=== PATIENT | female | born 1995 | race Caucasian/White ===

== ENCOUNTER 2022-04-25 12:49 | Outpatient (CLI) | payer BC, SELFPAY ==
--- NOTE | 2022-04-25 13:00 | US_ITS ---
Patient: EULOGIO LUCIA Facility:?[facility] Patient ID:?[id number] Site Patient ID:?[id number]. Site :?[id number] Study:?US-OB Pelvis -04/25/2022 1:36:30 PM Ordering Physician:?UNKNOWN UNKNOWN Final Report: INDICATION: 27 year-old female. First trimester scan, establish dates. COMPARISON: None. TECHNIQUE: Real-time shrestha-scale imaging of the pelvis was performed. FINDINGS: Sonographic imaging demonstrates a single living intrauterine gestation. The embryo demonstrates a regular cardiac rate measuring 176 beats per minute. The embryo`s crown-rump length measurement of 1.7 cm corresponds to a gestational age of 8 weeks 0 days with a sonographic due date of December 05, 2022. There is a normal-appearing yolk sac measuring up to 2.3 mm. There are no gross abnormalities noted within the embryo at this early state of development. The placenta has not yet developed. The gestational sac has a normal appearance and there is no evidence of a perigestational hemorrhage. The amount of fluid within the sac appears appropriate for gestational age. The cervix is closed. The myometrium appears normal. The ovaries are of normal size. The right ovary measures 3.6 x 2.8 x 2.1 cm and contains a small corpus luteum cyst of . The left ovary measures 2.4 x 1.4 x 2.8 cm. There are no suspicious fluid collections noted in the cul-de-sac. IMPRESSION: Normal first trimester OB ultrasound exam. Gestational age calculated at 8 weeks 0 days with a sonographic due date of December 05, 2022. Dictated by Rangel Guerra MD @ 04/25/2022 4:53:49 PM Signed by:?Rangel Guerra MD @04/25/2022 4:53:49 PM (Electronic Signature)
== END 2022-04-25 12:50 | disposition home or self-care (01) ==
PROVIDERS: PCP Physician Assistant Medical; Visit Provider Physician Assistant
DX: Z34.91 Encounter for supervision of normal pregnancy, unspecified, first trimester (principal); Z3A.08 8 weeks gestation of pregnancy
CPT/HCPCS: 76817; 86592; 86703; 86762; 86787; 86803; 86850; 86900; 86901; 87086; 87340; 87491; 87591

== ENCOUNTER 2022-07-18 13:48 | Outpatient (CLI) | payer BC, SELFPAY ==
--- NOTE | 2022-07-18 14:00 | CRLHL7_ITS ---
For Patients: As a result of the Century Cures Act, medical imaging exams and procedure reports are released immediately into your electronic medical record. You may view this report before your referring provider. If you have questions, please contact your health care provider. INDICATION: Evaluate anatomy. COMPARISON: 04/25/2022 TECHNIQUE: Real time shrestha scale imaging of the fetus was performed as well as color Doppler analysis of the umbilical vessels. FINDINGS: Sonographic imaging demonstrates a single living intrauterine gestation. Fetus demonstrates a regular cardiac rate of 152 beats per minute. Fetus has a vertex position. The placenta lies anteriorly without evidence of placenta previa. The edge of the placenta is located 5.2 cm from the internal cervical os. Amniotic fluid volume appears normal. Single deepest vertical pocket: 4.5 cm. The cervix is closed and measures 3.5 cm in length. The composite ultrasound gestational age is calculated at 20 weeks 5 days with an estimated sonographic due date of 11/30/2022. The estimated weight is 376 grams which lies at the 86th %. The following biometric measurements were obtained: Biparietal diameter: 4.8 cm/20 weeks 4 days 73rd% Head circumference: 18.2 cm/20 weeks 4 days 68th% Abdominal circumference: 15.9 cm/21 weeks 0 days 76th% Femur length: 3.4 cm/20 weeks 4 days 63rd% The HC/AC ratio measures: 1.14 range (1.06-1.25) On anatomic survey, there is a normal appearance of the cavum septum pellucidum is not well visualized. Prominence of 1 of the lateral ventricles is present measuring up to 1 cm. Posterior fossa is probably normal. The nose, lips, and facial profile appear normal. The cervical, thoracic and lumbar spine are well visualized and appear normal. There is a normal four-chamber heart view and the left and right ventricular outflow tracts appear normal. The diaphragm and stomach appear normal. The kidneys and bladder also appear normal. There is a normal three-vessel cord and cord insertion site. The four extremities appear normal. IMPRESSION: Nonvisualization of the cavum septum pellucidum and prominence of 1 of the cerebral lateral ventricles. Maternal medicine level 2 ultrasound recommended. Sonographic gestational age 20 weeks 5 days and sonographic due date 11/30/2022. Sonographic age 5 days ahead of the clinical age. Estimated weight 86th percentile. Abdominal circumference 76th percentile. Dictated by Elvin Lainez MD @ 07/19/2022 11:01:25 AM (Electronically Signed)
== END 2022-07-18 13:49 | disposition home or self-care (01) ==
LOC: US 13:49
PROVIDERS: PCP Physician Assistant Medical; Visit Provider Obstetrics & Gynecology
DX: Z34.92 Encounter for supervision of normal pregnancy, unspecified, second trimester (principal); Z3A.20 20 weeks gestation of pregnancy
CPT/HCPCS: 76805

== ENCOUNTER 2022-09-10 14:32 | Outpatient (CLI) | payer BC, SELFPAY | END 2022-09-10 14:33 | disposition home or self-care (01) | LOC: NFLDREF 09-14 06:03 | PROVIDERS: PCP Physician Assistant Medical; Referring Provider Physician Assistant Medical; Visit Provider Obstetrics & Gynecology | DX: Z34.93 Encounter for supervision of normal pregnancy, unspecified, third trimester (principal); Z3A.28 28 weeks gestation of pregnancy | CPT/HCPCS: 86592 ==

== ENCOUNTER 2022-10-21 11:00 | Outpatient (CLI) | payer BC, SELFPAY ==
--- NOTE | 2022-10-21 11:00 | CRLHL7_ITS ---
For Patients: As a result of the Century Cures Act, medical imaging exams and procedure reports are released immediately into your electronic medical record. You may view this report before your referring provider. If you have questions, please contact your health care provider. INDICATION: Third trimester scan, evaluate growth. COMPARISON: 07/18/2022 TECHNIQUE: Real time shrestha scale imaging of the fetus was performed. FINDINGS: Sonographic imaging demonstrates a single living intrauterine gestation. Fetus demonstrates a regular cardiac rate of 128 beats per minute. Fetus has a vertex position. Placenta is anterior. Known succenturiate lobe not visualized. Amniotic fluid volume appears normal and there is a single deepest vertical pocket: 6.3 cm. The estimated weight is 3177gm which lies at the greater than 97th %. On the prior OB ultrasound exam dated 07/18/2022 the estimated weight was at the 86th%. BPD, HC, AC greater than 97th percentile. The HC/AC ratio measures 0.99 range (0.91-1.05). IMPRESSION: Sonographic gestational age 37 weeks 2 days and sonographic due date 11/09/2022. Sonographic age 26 days ahead of the clinical age. Estimated weight greater than 97th percentile. BPD, HC, AC greater than 97th percentile. Known succenturiate placenta lobe not visualized on today`s examination due to position. Dictated by Elvin Lainez MD @ 10/21/2022 12:30:04 PM (Electronically Signed)
== END 2022-10-21 11:01 | disposition home or self-care (01) ==
PROVIDERS: PCP Physician Assistant Medical; Visit Provider Obstetrics & Gynecology
DX: O36.63X0 Maternal care for excessive fetal growth, third trimester, not applicable or unspecified (principal); Z3A.37 37 weeks gestation of pregnancy
CPT/HCPCS: 76816; 82728

== ENCOUNTER 2022-11-04 13:00 | Outpatient (RCR) | payer BC, SELFPAY ==
--- NOTE | 2022-10-25 11:06 | URNOTE ---
Injectafer ([id number]) has been approved 750mg x 2 doses -01/23/2023. Auth #[id number]
[2022-10-28] MEDS: FERRIC CARBOXYMALTOSE 750 MG in 0.9 % SODIUM CHLORIDE 250 ml 250 ML 540 MG IVPB (13:59)
[2022-10-28 14:10] VITALS: BP 97/57; PULSE 106; RESP 18; TEMP 36.5; O2SAT 96
[2022-10-28 14:32] VITALS: BP 107/63; PULSE 101; RESP 16; TEMP 36.5; O2SAT 96
[2022-11-04 13:04] VITALS: BP 97/60; PULSE 110; RESP 16; TEMP 36.9; O2SAT 96
[2022-11-04] MEDS: FERRIC CARBOXYMALTOSE 750 MG in 0.9 % SODIUM CHLORIDE 250 ml 250 ML 1060 MG IVPB (13:17)
== END 2023-04-26 23:59 | disposition home or self-care (01) ==
LOC: CCIC 13:00
PROVIDERS: PCP Physician Assistant Medical; Referring Provider Physician Assistant Medical; Visit Provider Obstetrics & Gynecology
DX: D50.9 Iron deficiency anemia, unspecified (principal)
CPT/HCPCS: 96365; 96374; J1439; J7050

== ENCOUNTER 2022-11-05 13:15 | Outpatient (CLI) | payer BC, SELFPAY | END 2022-11-05 13:16 | disposition home or self-care (01) | LOC: NFLDREF 11-06 17:02 | PROVIDERS: PCP Physician Assistant Medical; Referring Provider Physician Assistant Medical; Visit Provider Obstetrics & Gynecology | DX: Z34.93 Encounter for supervision of normal pregnancy, unspecified, third trimester (principal); O99.013 Anemia complicating pregnancy, third trimester; Z3A.35 35 weeks gestation of pregnancy | CPT/HCPCS: 87081; 87653 ==

== ENCOUNTER 2022-11-28 05:16 | Inpatient (IN) | payer BC, SELFPAY ==
[2022-11-28] VITALS (33 sets, daily range): BP systolic 88–120; BP diastolic 44–65; PULSE 52–96; RESP 14–16; TEMP 35.4–37.2; O2SAT 95–100; BMI 30.2
[2022-11-28] MEDS: LACTATED RINGERS 1000 ML 1,000 ML 500 ML IV (06:03)
[2022-11-28 06:24] LABS: Basophils Absolute Auto 0.02 K/uL (0.00-0.30); Basophils Percent Auto 0.2 % (0.0-3.0); Hematocrit 32.8 % (33.0-51.0); Hemoglobin* 10.8 gm/dL (12.0-16.0); Immature Granulocytes Abs Auto 0.24 K/uL (0.00-0.30); Immature Granulocytes Pct Auto 2.4 %; Lymphocytes Absolute Auto 2.16 K/uL (0.90-2.90); Mean Corpuscular HGB Conc 33 gm/dL (32-36); Mean Corpuscular Hemoglobin 32 pg (26-34); Mean Corpuscular Volume 96 fL (80-100); Monocytes Percent Auto 9.7 % (0.0-11.0); Neutrophils Absolute Auto 6.45 K/uL (1.7-7.0); Neutrophils Percent Auto 65.7 % (42.0-72.0); Platelet Count* 172 K/uL (140-440); RDW Coefficient of Variation % 16.9 % (11.5-15.5); Red Blood Count 3.43 m/uL (4.00-5.20); White Blood Count* 9.82 K/uL (4.50-11.00)
[2022-11-28 06:26] LABS: Slide Review Reflex No
--- NOTE | 2022-11-28 07:35 | W.ANESCHARGE ---
Anesthesia Charges Start Date/Time Anesthesia Start Date: 11/28/22 Anesthesia Start Time: 07:23 Stop Date/Time Anesthesia Stop Date: 11/28/22 Anesthesia Stop Time: 08:49
[2022-11-28] MEDS: LACTATED RINGERS 1000 ML 1,000 ML 125 ML IV (08:23)
[2022-11-28] MEDS: KETOROLAC 30 MG/ML inj IVP ×4 (08:26→21:11)
--- NOTE | 2022-11-28 08:45 | W.PM.NB ---
Nerve Block Nerve Block Time Seen by Provider: 08:40 Date Seen: 11/28/22 Type of block requested by surgeon for post-operative analgesia: TAP Side: bilateral Time out performed: Yes Verification of patient name: Yes Verification of date of : Yes Site marking: site marked Name of person performing procedure: LeDu Assistants, if any: Seng Continuous monitoring Was continuous monitoring of O2 sat, B/P, director of cardiac rehabilitation, recorded every 15 minutes?: Yes Procedure Checklist: sterile prep, needles and gloves Ultrasound guided. Images saved: Yes Medications given in 5ml increments after negative aspiration: Marcaine %: 0.25 mL: 30 Needle gauge: 20 and Exparel mL: 10 Patient tolerated procedure well: Yes Additional comments: Needle noted adjacent to nerve Block Charges Block Charge (with Pro Fee): TAP Bilateral Use of Ultrasound Machine for Block: Yes- US Guidance/pain block
--- NOTE | 2022-11-28 08:46 | W.ANESCHARGE ---
Anesthesia Charges Start Date/Time Anesthesia Start Date: 11/28/22 Anesthesia Start Time: 07:23 Stop Date/Time Anesthesia Stop Date: 11/28/22 Anesthesia Stop Time: 08:49
--- NOTE | 2022-11-28 12:10 | PM.OBPRCCS ---
Procedure Date of procedure: 11/28/22 Pre-op diagnosis: 39 weeks' gestation; history of shoulder dystocia; macrosomia Post-op diagnosis: same Procedure Done: Global (Primary low transverse ) Will [facility] bill your pro fee for this procedure?: Yes Blood Loss Measurement Type: QBL (5328) Bakri Used: No IV fluids (mL): 1,200 Surgeon: Penny Friedman MD Marine Mammal Trainer: OLIVER Cates Anesthesia type: Spinal Findings: 1. Male , cephalic OA presentation, Apgars 8 & 9, weight 10 lbs 2 oz 2. Markedly dilated vasculature along serosal surface of left lateral uterus. Otherwise, normal appearance of uterus, tubes and ovaries. Procedure Description: PREOPERATIVE DIAGNOSIS: [] PROCEDURE IN DETAIL: Patient was taken to the operating room with IV running. She received cefazolin in preoperative prophylaxis. Spinal anesthesia had previously been administered. Cooper catheter was inserted. She was prepped and draped in the usual sterile fashion. Anesthesia was tested and found to be adequate. A low-transverse skin incision was made with a scalpel and carried through to the underlying layer of fascia with the scalpel. The subcutaneous fat was dissected off the underlying fascia bluntly. The fascia was nicked in the midline with a scalpel, and this incision was extended laterally with scissors. The rectus muscles were in the midline. Peritoneum was identified and entered bluntly. Bovie was used to widen this opening laterally. Bird O retractor was inserted and tightened down, providing excellent visualization of the lower uterine segment. The bladder reflection was found to be well below the planned site for hysterotomy. Low-transverse uterine incision was made with a scalpel. Incision was widened bluntly. The infant's head was grasped through the hysterotomy and delivered with the help of fundal pressure. The remainder of the body delivered without incident. Cord was clamped and cut after 30 seconds. was handed off to attending nurses. The placenta was delivered with gentle traction on the cord. Briskly bleeding vessels along the left angle of the hysterotomy were initially grasped with ring forceps. The uterus was cleaned of all clots and debris with the dry lap pad. The hysterotomy was reapproximated with 0 Vicryl in a running, locked fashion. Second layer of the same suture was used along the left aspect of the incision to gain hemostasis. Several additional [id number] sutures and electrocautery were ultimately required in this area to obtain excellent hemostasis. The uterus was exteriorized during the latter part of the repair. The adnexa were examined and noted to be normal in appearance. The cul-de-sac and gutters were cleansed with dampened laparotomy sponge, removing any further clots and debris. The uterus was returned to the abdomen. The Bird O retractor was removed. The hysterotomy was reexamined and electrocautery used along the left aspect of the incision for oozing along the serosa. The peritoneum was reapproximated with 2 0 Vicryl in a running fashion. The rectus muscles were examined and found to be hemostatic. The fascia was reapproximated with 0 Vicryl in a running fashion. Subcutaneous fat was irrigated and Bovie used on oozing vessels. The subcutaneous fat was reapproximated with 2 0 plain gut suture in an interrupted fashion. The skin was closed with a subcuticular stitch of 4-0 Monocryl. Surgical glue was applied above this. Patient tolerated procedure well was taken to recovery area in stable condition. Complications: Intraoperative hemorrhage, partially attributable to hemorrhage of large vessel that hysterotomy, and partially attributable to uterine atony. Managed with IV Pitocin and Methergine. Condition: stable Disposition: floor
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
[2022-11-28] MEDS: ACETAMINOPHEN 500 MG TABLET 1000 MG PO ×2 (16:32→22:43)
[2022-11-28] MEDS: OXYCODONE 5 MG TABLET PO (19:46)
[2022-11-29 00:13] VITALS: BP 94/51; PULSE 66; RESP 16; TEMP 36.4; O2SAT 96
[2022-11-29] MEDS: OXYCODONE 5 MG TABLET PO ×4 (00:20→19:06)
[2022-11-29 03:37] VITALS: BP 90/53; PULSE 74; RESP 16; TEMP 36.9; O2SAT 96
[2022-11-29] MEDS: KETOROLAC 30 MG/ML inj IVP ×3 (03:40→15:59)
[2022-11-29 06:59] LABS: Hemoglobin* 9.6 gm/dL (12.0-16.0)
--- NOTE | 2022-11-29 07:15 | P.OBPN_ITS ---
OB - PN:Subj Subjective Time Seen by Provider: 07:15 Date Seen: 11/29/22 Interval history: Roya is a 27 y.o. who was admitted to L & D for elective r/t hx of shoulder dystocia and macrosomic .? She had an uncomplicated primary c- section.? ? ? Narrative: The patient feels well.? The pain is well controlled with current medications.? She has no new complaints.? She is breast feeding and reports things are going well.? the patient has done well.? Vitals have been stable.? She has remained afebrile.? Has a good appetite, is tolerating a general diet.? She is voiding without difficulty.? She is passing gas and has not had a bowel movement.? She is ambulating and denies any dizziness.? Has Small amount of rubra lochia.? OB - PN: Obj Exam Physical Exam: Vital signs: Temp Pulse Resp BP Pulse Ox O2 Del Method 98.5 F 74 16 90/53 L 96 Room Air 11/29/22 03:37 11/29/22 03:37 11/29/22 03:37 11/29/22 03:37 11/29/22 03:37 11/29/22 03:37 Narrative: VSS.? Afebrile? GENERAL APPEARANCE:? normal affect, alert, no distress? MOOD:? appropriate? HEENT: normocephalic, neck supple, full ROM? CHEST:? Symmetrical chest wall movement.? Normal respiratory effort.? Clear to auscultation? HEART:? regular rate and rhythm? ABDOMEN:? soft, non-tender. Uterine fundus is firm, at Umbilicus, Midline and is appropriate for the stage of recovery.? Bowel sounds present.? EXTREMITIES:? normal and no edema? SKIN: warm, dry.? Dressing on, clean/dry/intact.? No signs of infection noted.? OB - PN: Obj Data Labs Labs: Laboratory Results - last 24 hr 11/28/22 11/29/22 05:58 06:45 Hgb 9.6 L Blood Type A Positive Antibody Screen NEGATIVE OB - PN: A/P Delivery Assessment and Plan (1) Status post primary low transverse section: Status: Acute (2) Lactating mother: Status: Acute (3) History of shoulder dystocia in prior : Status: Acute (4) Anemia complicating : Status: Acute (5) macrosomia during : Status: Acute Plan day: 1 Comments: Assessment/Plan? G 3 P 2 status post uncomplicated primary .? ?? 1.? Continue route PP cares? 2.? .? May see if desired? 3.? Anticipate discharge home tomorrow or the following day per pt preference? 4.? Acute anemia.? Iron supplement ordered ?
[2022-11-29 08:00] VITALS: RESP 16; O2SAT 97
[2022-11-29 08:15] VITALS: BP 90/51; PULSE 70; RESP 16; TEMP 36.6; O2SAT 97
[2022-11-29] MEDS: DOCUSATE SODIUM 100 MG CAPSULE PO (08:26)
[2022-11-29] MEDS: ACETAMINOPHEN 500 MG TABLET 1000 MG PO ×3 (08:26→20:15)
[2022-11-29 15:44] VITALS: BP 96/61; PULSE 77; RESP 16; TEMP 36.8; O2SAT 97
[2022-11-29 23:47] VITALS: BP 100/64; PULSE 77; RESP 16; TEMP 36.9; O2SAT 97
[2022-11-29] MEDS: IBUPROFEN 600 MG TABLET PO (23:51)
[2022-11-30] MEDS: OXYCODONE 5 MG TABLET PO ×2 (02:20→08:36)
[2022-11-30] MEDS: ACETAMINOPHEN 500 MG TABLET 1000 MG PO ×2 (02:20→08:36)
[2022-11-30] MEDS: IBUPROFEN 600 MG TABLET PO ×2 (05:16→12:39)
[2022-11-30 08:30] VITALS: BP 126/58; PULSE 78; RESP 16; TEMP 36.7; O2SAT 98
[2022-11-30] MEDS: DOCUSATE SODIUM 100 MG CAPSULE PO (08:37)
--- NOTE | 2022-11-30 11:21 | P.DS_ITS ---
DS: Providers Provider Time Seen by Provider: 09:00 Date Seen: 11/30/22 Date of admission: 11/28/22 05:16 Primary care physician: Salma Beck PA-C Admitting Clinician: Penny Friedman MD Attending Physician on discharge: Penny Friedman MD Date of Discharge: 11/30/22 DS: Diagnosis Discharge Diagnosis (1) Status post primary low transverse section: Status: Acute (2) Scoliosis: Status: Acute (3) History of shoulder dystocia in prior : Status: Acute (4) Anemia complicating : Status: Acute (5) macrosomia during : Status: Acute (6) Environmental allergies: Status: Acute (7) Lactating mother: Status: Acute Exam Narrative: Exam Narrative: Physical exam: General: No acute distress Psych: Alert and oriented x3, full affect HEENT: Normocephalic, atraumatic Neck: No cervical adenopathy, no thyromegaly Heart: Regular rate and rhythm, no murmur rub or gallop Lungs: Clear to auscultation bilaterally Abdomen: Normoactive bowel sounds, soft, appropriately tenderness at incision site. No rebound, or guarding, no masses Incision: Clear, dry, intact without erythema, induration, or discharge. Skin: No lesions or rashes Breasts: no nodules or masses, no nipple discharge, no axillary adenopathy Lower extremities: No edema or erythema Pelvic exam: Scant bleeding on pad. Const: Vital Signs, click to edit/add: Vital Signs - 24 hr 11/29/22 15:44 11/29/22 23:47 11/30/22 08:30 Temperature 98.2 F 98.4 F 98.0 F Pulse Rate [Pulse Oximeter] 77 77 78 Respiratory Rate 16 16 16 Blood Pressure [Ri ght Arm] 96/61 100/64 126/58 L Pulse Oximetry 97 97 98 Oxygen Delivery Me thod Room Air Room Air Room Air OB - DS: Summary Hospital Course Hospital Course: The patient is a 27 year old at 39 weeks gestation that was admitted to the Center on 11/28/22 for scheduled primary low transverse section due to history of shoulder dystocia. She had an delivery complicated by intraoperative hemorrhage, partially contributed to hemorrhage of large vessels at hysterotomy, and partially attributed to uterine atony. She delivered a viable male . She is . the patient has done well. She does have acute blood loss anemia managed by PO iron. VSS. Overnight patient had no complaints. Her pain is well controlled on oral pain medications. She is tolerating a regular diet. She had passed flatus. She is ambulating without difficulty. Lochia is scant. She is urinating without potter. Patient denies chest pain, SOB, n/v, headache, RUQ pain, vision changes, dizziness. Time spent discussing smoking cessation with patient: 3 to 10 minutes Peripartum Data Procedures: Procedures Operation Date: 11/28/22 07:15 Actual Procedure Side Surgeon p Primary Section Penny Friedman MD [place] Infant Gender: Male Time Spent with Patient Time attestation: Total time spent providing and/or coordinating discharge services: Discharge Plan Discharge Disposition: Home, Self-Care Date of Admission: 11/28/22 05:16 Primary Care Provider: Salma Beck Condition: Stable Anticipated Discharge Date/Time: 11/30/22 11:22 Discharge Medications: New acetaminophen 500 mg Tablet 1,000 mg PO Q6H PRN (Reason: Pain) 30 Days Qty: 60 0RF ferrous sulfate 325 mg (65 mg iron) Tablet 325 mg PO Q48H 30 Days Qty: 15 0RF docusate sodium 100 mg Capsule 100 mg PO DAILY 30 Days Qty: 30 0RF ibuprofen 600 mg Tablet 600 mg PO Q6H PRN (Reason: Pain) 30 Days Qty: 60 0RF Lanolin (HPA) 100 % Cream 1 applic topical Q1H PRNQty: 21 0RF simethicone 80 mg Tablet,Chewable 80 - 160 mg PO Q4H PRN (Reason: Gas) 30 Days Qty: 60 0RF oxycodone 5 mg Tablet 5 mg PO Q6H PRN (Reason: Pain) 14 Days Qty: 20 0RF Continued All Day Allergy (cetirizine) 10 mg capsule 10 mg PO QDAY PRN (Reason: allergy symptoms) Qty: 30 6RF prenat.vits,benoit,krk-qcia-lsthw Tablet 1 tab PO QDAY Discharge Orders: Discharge Order (Routine); Ordered 11/30/22 Ordered By: Vanesa Resendiz Patient Education: (DC) Additional Instructions: Discharge instructions were reviewed with the patient including signs and symptoms of infection and home going medications. Lifting Restrictions: 15 pounds for [address] taking narcotic pain medication. 1-2 weeks No high impact or core exercises for 6 weeks. Nothing vaginally for 6 weeks: No tampons or intercourse. Off Work or School for 8 weeks. Symptoms to report to doctor: -Bleeding that saturates more than one pad per hour ?-Passing clots larger than the size of a golf ball ?-Pain not relieved by prescribed medication ?-Fever above 100.4 degrees Fahrenheit ?-A foul vaginal odor ?-Difficulty in emotions, mood and functions ?-Thoughts of hurting yourself and/or ?-Painful, reddened area in your breast ?-Any drainage, redness or tenderness in your IV/epidural site ?-Severe headache that doesn't improve after taking medications ?-Changes in vision, including temporary loss of vision, blurred vision, and/or light sensitivity ?-Upper abdominal pain (usually under ribs on the right side) ?-Decrease in urination or painful, frequent urinating ?-Chest pain ?-Shortness of breath ?-Tenderness or pain with redness and/swelling in the calf(s) of your leg Follow Up with a [facility] provider: 2 week : discuss feeding, control options and screen for anxiety/depression. 6 week visit for physical exam consultation services are available to all mothers and babies for the first year after delivery.? To make an appointment, please call [phone]. Follow Up Appointments: Salma Beck PA-C [Primary Care Provider] - Forms: [employer] Info Instructions
== END 2022-11-30 13:55 | disposition home or self-care (01) | DRG 540 ==
PROVIDERS: Obstetrics & Gynecology; Admitting Provider Obstetrics & Gynecology; PCP Physician Assistant Medical; Visit Provider Obstetrics & Gynecology
PROC: 10D00Z1 Extraction of Products of Conception, Low, Open Approach (ICD-10-PCS; CPT 59514; principal; 2022-11-28 07:15)
DX: O36.63X0 Maternal care for excessive fetal growth, third trimester, not applicable or unspecified (principal); O9A.32 Physical abuse complicating childbirth; Y07.010 Husband, current, perpetrator of maltreatment and neglect; O72.1 Other immediate postpartum hemorrhage; O99.02 Anemia complicating childbirth; D62 Acute posthemorrhagic anemia; Z3A.39 39 weeks gestation of pregnancy; Z37.0 Single live birth; G89.18 Other acute postprocedural pain
CPT/HCPCS: 01961; 36415; 76942; 85018; 85025; 86850; 86900; 86901; A9270; C9290; J0665; J1100; J1885; J2274; J2371; J2405; J2590; J7120

== ENCOUNTER 2022-12-12 16:00 | Inpatient (IN) | payer BC, SELFPAY ==
[2022-12-12] VITALS (22 sets, daily range): BP systolic 111–168; BP diastolic 72–108; PULSE 57–90; RESP 16; TEMP 36.6; O2SAT 95–97; BMI 27.4
[2022-12-12 15:37] LABS: Hematocrit 34.3 % (33.0-51.0); Hemoglobin* 11.4 gm/dL (12.0-16.0); Mean Corpuscular HGB Conc 33 gm/dL (32-36); Mean Corpuscular Hemoglobin 31 pg (26-34); Mean Corpuscular Volume 93 fL (80-100); Platelet Count* 307 K/uL (140-440); Red Blood Count 3.69 m/uL (4.00-5.20); White Blood Count* 7.96 K/uL (4.50-11.00)
[2022-12-12 15:41] LABS: Slide Review Reflex No
[2022-12-12 15:57] LABS: Alanine Aminotransferase* 22 U/L (4-35); Aspartate Amino Transferase* 30 U/L (12-35); Blood Urea Nitrogen* 17 mg/dL (5-24); Creatinine* 0.6 mg/dL (0.5-1.5); Est. Creatinine Clearance* 129.51; Estimated Glomerular Filt Rate 125 ml/min
[2022-12-12 15:57] LABS: Total Protein Urine 22 mg/dL
[2022-12-12] MEDS: LABETALOL HCL 5 MG/ML inj IVP ×2 (16:03→16:18)
[2022-12-12] MEDS: MAGNESIUM IV 4 GM/100 ML PIGGYBACK IVPB (16:20)
[2022-12-12] MEDS: LACTATED RINGERS 1000 ML 1,000 ML 75 ML IV (16:20)
[2022-12-12 16:25] LABS: Creatinine Urine 91.2 mg/dL
[2022-12-12] MEDS: IBUPROFEN 600 MG TABLET PO (17:20)
[2022-12-12] MEDS: CYCLOBENZAPRINE HCL 10 MG TABLET 5 MG PO (17:30)
[2022-12-13] VITALS (7 sets, daily range): BP systolic 121–140; BP diastolic 77–92; PULSE 71–74; RESP 16–18; TEMP 36.4–36.9; O2SAT 96
[2022-12-13] MEDS: IBUPROFEN 600 MG TABLET PO ×4 (03:47→22:13)
[2022-12-13] MEDS: ACETAMINOPHEN 500 MG TABLET 1000 MG PO ×3 (03:48→16:05)
[2022-12-13] MEDS: LACTATED RINGERS 1000 ML 1,000 ML 75 ML IV (05:52)
[2022-12-13 06:47] LABS: Hematocrit 37.5 % (33.0-51.0); Hemoglobin* 12.4 gm/dL (12.0-16.0); Mean Corpuscular HGB Conc 33 gm/dL (32-36); Mean Corpuscular Hemoglobin 31 pg (26-34); Mean Corpuscular Volume 93 fL (80-100); Platelet Count* 334 K/uL (140-440); Red Blood Count 4.02 m/uL (4.00-5.20)
[2022-12-13 06:53] LABS: Slide Review Reflex No
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
[2022-12-13 07:01] LABS: Creatinine* 0.5 mg/dL (0.5-1.5); Est. Creatinine Clearance* 155.42; Estimated Glomerular Filt Rate 130 ml/min
[2022-12-13 07:02] LABS: Alanine Aminotransferase* 21 U/L (4-35); Aspartate Amino Transferase* 24 U/L (12-35); Blood Urea Nitrogen* 13 mg/dL (5-24)
--- NOTE | 2022-12-13 09:32 | PM.OBPNVD1 ---
OB - PN:Subj Subjective Date Seen: 12/13/22 Patient comments OB post-: no complaints [place] status: Narrative: Roya is a 27 y.o. who was re-admitted to [facility] for magnesium infusion after recent diagnosis of preeclampsia with severe features. The patient feels regular, she feels a bit dizzy. In general, denies headache, visual changes or pain in her upper abdomen. ?She is breast feeding and pumping, baby is with dad but planning on coming in later today. She has had elevated blood pressures, not on severity range recently. She has remained afebrile.? Has a good appetite, is tolerating a general diet. ?She is voiding without difficulty. Has Small amount of rubra lochia. ? OB - PN: Obj Exam Physical Exam: Vital signs: Temp Pulse Resp BP Pulse Ox O2 Del Method 98.5 F 74 16 130/84 96 Room Air 12/13/22 08:09 12/13/22 08:09 12/13/22 08:09 12/13/22 08:09 12/13/22 08:09 12/13/22 08:09 Narrative: VITAL SIGNS: As noted above. GENERAL APPEARANCE: Alert, cooperative female in no acute distress. MOOD & AFFECT: Normal. HEART: Regular rate and rhythm without murmurs. LUNGS: Lungs are clear to auscultation bilaterally. No crackles, wheezes, or rhonchi. ABDOMEN: Soft, non-distended and nontender. : Normal lochia. EXTREMITIES: Bilateral trace edema up to ankles. Well perfused. Nontender. NEURO: Intact. OB - PN: Obj Data Labs Labs: Laboratory Results - last 24 hr 12/12/22 12/12/22 12/13/22 15:27 15:29 06:05 WBC 7.96 9.70 RBC 3.69 L 4.02 Hgb 11.4 L 12.4 Hct 34.3 37.5 MCV 93 93 MCH 31 31 MCHC 33 33 Plt Count 307 334 BUN 17 13 Creatinine 0.6 0.5 Estimated Creat Clear 129.51 155.42 Estimated GFR 125 130 AST 30 24 ALT 22 21 Urine Creatinine 91.2 Protein/Creatinin Ratio 0.20 H Urine Total Protein 22 OB - PN: A/P Delivery Assessment and Plan (1) Pre-eclampsia, severe, delivered: Status: Acute Plan 1. Continue magnesium sulfate infusion to complete 24 hours, continue with HELLP labs every 6 hours, collect a magnesium level with her next set of labs. 2. Continue close monitoring of vitals signs and I/O. Will start Procardia 30mg ER daily. 3. Patient understands recommendation to continue close inpatient observation for at least 12-24 hours after magnesium sulfate infusion is discontinued.
[2022-12-13 10:02] LABS: Magnesium* 6.3 mg/dL (1.5-2.6)
[2022-12-13] MEDS: NIFEdipine 30 MG TAB.ER.24 PO (10:05)
[2022-12-13 12:00] LABS: Hematocrit 38.4 % (33.0-51.0); Hemoglobin* 12.7 gm/dL (12.0-16.0); Mean Corpuscular HGB Conc 33 gm/dL (32-36); Mean Corpuscular Hemoglobin 31 pg (26-34); Mean Corpuscular Volume 93 fL (80-100); Platelet Count* 333 K/uL (140-440); Red Blood Count 4.11 m/uL (4.00-5.20); White Blood Count* 8.06 K/uL (4.50-11.00)
[2022-12-13 12:01] LABS: Slide Review Reflex No
[2022-12-13 12:14] LABS: Creatinine* 0.5 mg/dL (0.5-1.5); Est. Creatinine Clearance* 155.42; Estimated Glomerular Filt Rate 130 ml/min
[2022-12-13 12:15] LABS: Alanine Aminotransferase* 22 U/L (4-35); Aspartate Amino Transferase* 25 U/L (12-35); Blood Urea Nitrogen* 10 mg/dL (5-24)
[2022-12-14 00:40] VITALS: BP 128/83; PULSE 86; RESP 18; TEMP 37
[2022-12-14 04:15] VITALS: BP 131/80; PULSE 66; RESP 16; TEMP 36.9
[2022-12-14] MEDS: ACETAMINOPHEN 500 MG TABLET 1000 MG PO (06:54)
--- NOTE | 2022-12-14 07:46 | P.DS_ITS ---
DS: Providers Provider Date Seen: 12/14/22 Date of admission: 12/12/22 16:00 Primary care physician: Salma Beck PA-C Admitting Clinician: Vanesa Resendiz MD Attending Physician on discharge: Penny Friedman MD Date of Discharge: 12/14/22 DS: Diagnosis Discharge Diagnosis (1) Pre-eclampsia, severe, delivered: Status: Acute Problem details: Status post 24 hours of magnesium sulfate for seizure prophylaxis, ending 12/13/2022. Maintained on nifedipine ER 30 mg daily. (2) Status post primary low transverse section: Status: Acute (3) Lactating mother: Status: Acute Discharge Plan Discharge Disposition: Home, Self-Care Date of Admission: 12/12/22 16:00 Attending Provider on Discharge: Penny Friedman Primary Care Provider: Salma Beck Condition: Improved Anticipated Discharge Date/Time: 12/14/22 10:58 Discharge Medications: New nifedipine 30 mg Tablet Extended Release 24hr 30 mg PO DAILY Qty: 30 0RF Continued All Day Allergy (cetirizine) 10 mg capsule 10 mg PO QDAY PRN (Reason: allergy symptoms) Qty: 30 6RF prenat.vits,benoit,eyr-fmhz-corxu Tablet 1 tab PO QDAY acetaminophen 500 mg Tablet 1,000 mg PO Q6H PRN (Reason: Pain) 30 Days Qty: 60 0RF ferrous sulfate 325 mg (65 mg iron) Tablet 325 mg PO Q48H 30 Days Qty: 15 0RF ibuprofen 600 mg Tablet 600 mg PO Q6H PRN (Reason: Pain) 30 Days Qty: 60 0RF Lanolin (HPA) 100 % Cream 1 applic topical Q1H PRNQty: 21 0RF oxycodone 5 mg Tablet 5 mg PO Q6H PRN (Reason: Pain) 14 Days Qty: 20 0RF Discharge Orders: Discharge Order (Routine); Ordered 12/14/22 Ordered By: Penny Friedman Patient Education: OB High Blood Pressure DC Additional Instructions: Discharge instructions were reviewed with the patient including signs and symptoms of infection and home going medications Lifting Restrictions: 20 pounds for 6 weeks Nothing vaginally for 6 weeks: no tampons or intercourse Do not drive while taking narcotic pain medication(s) Off Work or School for 8 weeks Symptoms to report to doctor: * Bleeding that saturates more than one pad per hour * Passing clots larger than the size of a golf ball * Pain not relieved by prescribed medication * Fever above 100.4 degrees Fahrenheit * A foul vaginal odor * Difficulty in emotions, mood, and functions * Thoughts of hurting yourself and/or * Painful, reddened area in your breast * Any drainage, redness, or tenderness in your IV/epidural site * Severe headache that doesn't improve after taking medications * Changes in vision, including temporary loss of vision, blurred vision, and/or light sensitivity * Upper abdominal pain (usually under ribs on the right side) * Decrease in urination or painful, frequent urinating * Chest pain * Shortness of breath * Tenderness or pain with redness and/swelling in the calf(s) of your leg [facility] for a BP check?12/16 or 12/17 Call with BP greater than or equal to 150/100 6-week visit for an annual exam. consultation services are available to all mothers and babies for the first year after delivery.? To make an appointment, please call [phone]. Discharge Diet: Regular Follow Up Appointments: Salma Beck PA-C [Primary Care Provider] - Forms: [employer] Info Instructions Hospital Course Course Hospital Course: Roya is a 27-year-old G3 now P3 woman who for is scented for 2 week visit and was found to have severe preeclampsia by blood pressure criteria. she is status post primary low-transverse section for suspected macrosomia with a history of shoulder dystocia in prior . She was also experiencing headache At time of admission. She was sent to Center, where she received IV antihypertensives, followed by IV magnesium sulfate infusion for seizure prophylaxis. She was started on Procardia 30 mg daily for management of elevated blood pressures. Today, on hospital day 3, she is doing well. She feels much better. She was experiencing some pain in her right neck and shoulder, but this has resolved. Labs Labs: Laboratory Tests 12/13/22 12/13/22 12/12/22 Range/Units 11:51 06:05 15:29 WBC 8.06 9.70 7.96 (4.50-11.00) K/uL RBC 4.11 4.02 3.69 L (4.00-5.20) m/uL Hgb 12.7 12.4 11.4 L (12.0-16.0) gm/dL Hct 38.4 37.5 34.3 (33.0-51.0) % MCV 93 93 93 (80-100) fL MCH 31 31 31 (26-34) pg MCHC 33 33 33 (32-36) gm/dL Plt Count 333 334 307 (140-440) K/uL BUN 10 13 17 (5-24) mg/dL Creatinine 0.5 0.5 0.6 (0.5-1.5) mg/dL Estimated Creat Clear 155.42 155.42 129.51 Estimated GFR 130 130 125 ml/min Magnesium 6.3 H* (1.5-2.6) mg/dL AST 25 24 30 (12-35) U/L ALT 22 21 22 (4-35) U/L Urine Creatinine mg/dL Protein/Creatinin Ratio (0-0.19) Urine Total Protein mg/dL 12/12/22 Range/Units 15:27 WBC (4.50-11.00) K/uL RBC (4.00-5.20) m/uL Hgb (12.0-16.0) gm/dL Hct (33.0-51.0) % MCV (80-100) fL MCH (26-34) pg MCHC (32-36) gm/dL Plt Count (140-440) K/uL BUN (5-24) mg/dL Creatinine (0.5-1.5) mg/dL Estimated Creat Clear Estimated GFR ml/min Magnesium (1.5-2.6) mg/dL AST (12-35) U/L ALT (4-35) U/L Urine Creatinine 91.2 mg/dL Protein/Creatinin Ratio 0.20 H (0-0.19) Urine Total Protein 22 mg/dL Labs at 8:30 a.m. on day of discharge: Hemoglobin 13.1, platelets 353 BUN 15, creatinine 0.6 AST 20, ALT 22 OB Problem List Additional Plan (1) Pre-eclampsia, severe, delivered: Problem details: Status post 24 hours of magnesium sulfate for seizure prophylaxis, ending 12/13/2022. Maintained on nifedipine ER 30 mg daily. Status: Acute (2) Status post primary low transverse section: Status: Acute (3) Lactating mother: Status: Acute Plan Discharge today. Follow-up in clinic for blood pressure check in 3-5 days. DS: Summary Vital Signs Vital Signs: Vital Signs Temp Pulse Resp BP Pulse Ox O2 Del Method 12/14/22 04:15 98.5 F 66 16 131/80 Room Air 12/14/22 00:40 98.6 F 86 18 128/83 Room Air 12/13/22 21:22 132/80 12/13/22 20:11 98.2 F 71 18 138/81 12/13/22 16:13 71 16 122/77 96 Room Air 12/13/22 12:15 74 16 121/83 96 Room Air 12/13/22 10:06 135/86 12/13/22 08:09 98.5 F 74 16 130/84 96 Room Air Discharge Examination Physical Examination findings: General: Pleasant, no acute distress Heart: Regular rate and rhythm, no murmur or gallop Lungs: Clear to auscultation bilaterally Abdomen: Soft, nontender, fundus well below umbilicus, incision clean, dry, and intact Lower extremities: 2+ edema of bilateral ankles, no erythema Procedures Procedures Performed: Magnesium sulfate infusion for 24 hours
[2022-12-14 07:50] VITALS: BP 131/85; PULSE 70; RESP 16; TEMP 36.9; O2SAT 98
[2022-12-14] MEDS: NIFEdipine 30 MG TAB.ER.24 PO (07:57)
[2022-12-14 08:00] VITALS: TEMP 36.9
[2022-12-14] MEDS: IBUPROFEN 600 MG TABLET PO (08:00)
[2022-12-14 08:35] LABS: Hematocrit 40.2 % (33.0-51.0); Hemoglobin* 13.1 gm/dL (12.0-16.0); Mean Corpuscular HGB Conc 33 gm/dL (32-36); Mean Corpuscular Hemoglobin 31 pg (26-34); Mean Corpuscular Volume 94 fL (80-100); Platelet Count* 353 K/uL (140-440); Red Blood Count 4.26 m/uL (4.00-5.20); White Blood Count* 7.61 K/uL (4.50-11.00)
[2022-12-14 08:36] LABS: Slide Review Reflex No
[2022-12-14 08:47] LABS: Alanine Aminotransferase* 22 U/L (4-35); Aspartate Amino Transferase* 20 U/L (12-35); Blood Urea Nitrogen* 15 mg/dL (5-24); Creatinine* 0.6 mg/dL (0.5-1.5); Est. Creatinine Clearance* 129.51; Estimated Glomerular Filt Rate 125 ml/min
[2022-12-14 11:44] VITALS: BP 123/78
== END 2022-12-14 12:45 | disposition home or self-care (01) | DRG 561 ==
LOC: OB OUT 16:06 → OB 12-14 07:50
PROVIDERS: Obstetrics & Gynecology; Admitting Provider Obstetrics & Gynecology; PCP Physician Assistant Medical; Visit Provider Obstetrics & Gynecology
DX: O14.15 Severe pre-eclampsia, complicating the puerperium (principal); O99.013 Anemia complicating pregnancy, third trimester
CPT/HCPCS: 36415; 82565; 82570; 83735; 84156; 84450; 84460; 84520; 85027; A9270; J3475; J7120